=== PATIENT | female | born 1970 | race Two or more races ===

== ENCOUNTER 2017-10-08 21:56 | Emergency (ER) | payer OTHER ==
[2017-10-08] MEDS ORDERED: IBUPROFEN 800 MG TABLET PO ONE (23:08)
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
[2017-10-09] MEDS ORDERED: CYCLOBENZAPRINE HCL 10 MG TABLET PO ONE (00:18)
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
[2017-10-09 01:05] VITALS: BP 150/78
--- NOTE | 2017-10-09 07:17 | EKG REPORT ---
SEVERITY:- NORMAL ECG - SINUS RHYTHM : Confirmed by: Verona Cabral MD 09-Oct-2017 07:16:37
== END 2017-10-09 01:06 | disposition home or self-care (01) ==
LOC: ER 21:56
DX: R07.2 Precordial pain (principal); R07.81 Pleurodynia; V87.7XXA Person injured in collision between other specified motor vehicles (traffic), initial encounter; F17.210 Nicotine dependence, cigarettes, uncomplicated
CPT/HCPCS: 71046; 71120; 93005; 93010; 99285; 99406

== ENCOUNTER 2018-08-25 12:47 | Emergency (ER) | payer SELFPAY ==
[2018-08-25 13:00] VITALS: BP 191/71
== END 2018-08-25 13:44 | disposition left against medical advice (07) ==
LOC: ER 12:47
DX: Z53.21 Procedure and treatment not carried out due to patient leaving prior to being seen by health care provider (principal)

== ENCOUNTER 2018-09-02 14:55 | Emergency (ER) | payer SELFPAY ==
[2018-09-02] MEDS ORDERED: ACETAMINOPHEN 325 MG TABLET PO ONE (15:49)
[2018-09-02] MEDS ORDERED: LIDOCAINE 5% (700 MG) TRANSDERMAL ADH..PATCH TP ONE (15:50)
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
[2018-09-02 16:27] LABS: APPEARANCE,URINE CLOUDY; BILIRUBIN,URINE NEGATIVE (NEGATIVE); COLOR,URINE YELLOW; GLUCOSE, URINE NEGATIVE (NEGATIVE); KETONES,URINE NEGATIVE (NEGATIVE); LEUKOCYTE ESTERASE,URINE TRACE (NEGATIVE); NITRITE,URINE NEGATIVE (NEGATIVE); PROTEIN,URINE NEGATIVE (NEGATIVE); URINE SPECIFIC GRAVITY 1.024; UROBILINOGEN,URINE NEGATIVE mg/dL (<2.0)
[2018-09-02 16:44] VITALS: BP 130/79
== END 2018-09-02 16:43 | disposition home or self-care (01) ==
LOC: ER 14:55
DX: M54.42 Lumbago with sciatica, left side (principal); F17.200 Nicotine dependence, unspecified, uncomplicated
CPT/HCPCS: 81001; 99283

== ENCOUNTER 2018-09-22 14:01 | Emergency (ER) | payer SELFPAY ==
--- NOTE | 2018-09-22 15:05 | ER Document Report ---
ED Medical Screen (RME) - General Chief Complaint: Leg Swelling Stated Complaint: LEG PAIN Time Seen by Provider: 09/22/18 15:03 Mode of Arrival: Wheelchair Information source: Patient Notes: 48-year-old female presented to ED for complaint of bilateral pedal edema with redness for the last 2 weeks. She states the redness is increasing. She states the legs and feet are getting larger. She states yesterday when she was driving she had some numbness to her right foot and leg. She states she does have back problems and sometimes she does have sciatica. She is alert oriented respirations regular and unlabored speaking in full sentences. She does have a history of high blood pressure and was supposed to be taking lisinopril with hydrochlorothiazide but has not been on that for a while. Patient is alert oriented respirations are. Patient states she does smoke a pack a day but does not drink alcohol or use any kind of drugs. 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 I have greeted and performed a rapid initial assessment of this patient. A comprehensive ED assessment and evaluation of the patient, analysis of test results and completion of medical decision making process will be conducted by an additional ED providers. Dictation of this chart was performed using voice recognition software; therefore, there may be some unintended grammatical errors. TRAVEL OUTSIDE OF THE [place] IN LAST 30 DAYS: No - Related Data Allergies/Adverse Reactions: No Known Allergies Allergy (Verified 09/22/18 14:05) Past Medical History Renal/ Medical History: Denies: Hx Peritoneal Dialysis Musculoskeltal Medical History: Reports Hx Arthritis, Reports Hx Musculoskeletal Deformity, Reports Hx Musculoskeletal Trauma Traumatic Medical History: Reports: Hx Fractures - Left leg Past Surgical History: Reports: Hx Dilation and Curettage - d&c-2008, Hx Gynecologic Surgery - Immunizations Hx Diphtheria, Pertussis, Tetanus Vaccination: Yes Physical Exam - Vital signs Vitals: Temp Pulse Resp BP Pulse Ox 98.6 F 94 18 158/88 H 94 09/22/18 14:08 09/22/18 14:08 09/22/18 14:08 09/22/18 14:08 09/22/18 14:08 Course - Vital Signs Vital signs: Temp Pulse Resp BP Pulse Ox 98.6 F 94 18 158/88 H 94 09/22/18 14:08 09/22/18 14:08 09/22/18 14:08 09/22/18 14:08 09/22/18 14:08
--- NOTE | 2018-09-22 15:34 | RADIOLOGY REPORT (SQ) ---
EXAM DESCRIPTION: CHEST 2 VIEWS COMPLETED DATE/TIME: 09/22/2018 3:23 pm REASON FOR STUDY: pedal edema COMPARISON: Two-view chest 10/08/2017 EXAM PARAMETERS: NUMBER OF VIEWS: two views TECHNIQUE: Digital Frontal and Lateral radiographic views of the chest acquired. RADIATION DOSE: NA LIMITATIONS: none FINDINGS: LUNGS AND PLEURA: No opacities, masses or pneumothorax. No pleural effusion. MEDIASTINUM AND HILAR STRUCTURES: No masses or contour abnormalities. HEART AND VASCULAR STRUCTURES: Mild cardiomegaly, stable BONES: No acute findings. HARDWARE: None in the chest. OTHER: No other significant finding. IMPRESSION: NO ACUTE RADIOGRAPHIC FINDING IN THE CHEST. TECHNICAL DOCUMENTATION: JOB ID: [id number] [employer]- All Rights Reserved Reading location - IP/workstation name: [email or web address]
[2018-09-22 15:42] LABS: ABSOLUTE BASOPHILS # (AUTO) 0.1 10^3/uL (0.0-0.2); ABSOLUTE EOSINOPHILS # (AUTO) 0.5 10^3/uL (0.0-0.6); ABSOLUTE LYMPHOCYTES (AUTO) 1.5 10^3/uL (0.5-4.7); ABSOLUTE MONOCYTES (AUTO) 0.8 10^3/uL (0.1-1.4); ABSOLUTE NEUT (AUTO) 6.3 10^3/uL (1.7-8.2); BASOPHILS % (AUTO) 0.6 % (0-2); EOSINOPHILS % (AUTO) 5.7 % (0-6); HEMATOCRIT 37.9 % (36.0-47.0); HEMOGLOBIN 12.3 g/dL (12.0-15.5); LYMPHOCYTES % (AUTO) 15.9 % (13-45); MEAN CORPUSCULAR HEMOGLOBIN 25.9 pg (27.0-33.4); MEAN CORPUSCULAR HGB CONC 32.4 g/dL (32.0-36.0); MEAN CORPUSCULAR VOLUME 80 fl (80-97); MONOCYTES % (AUTO) 8.9 % (3-13); PLATELET COUNT 409 10^3/uL (150-450); RED BLOOD COUNT 4.73 10^6/uL (3.72-5.28); RED CELL DISTRIBUTION WIDTH 16.2 % (11.5-14.0); SEGMENTED NEUTROPHILS % (AUTO) 68.9 % (42-78); TOTAL CELLS COUNTED % (AUTO) 100 %; WHITE BLOOD COUNT 9.2 10^3/uL (4.0-10.5)
[2018-09-22 15:56] LABS: APPEARANCE,URINE CLEAR; BILIRUBIN,URINE NEGATIVE (NEGATIVE); COLOR,URINE YELLOW; GLUCOSE, URINE NEGATIVE (NEGATIVE); KETONES,URINE NEGATIVE (NEGATIVE); LEUKOCYTE ESTERASE,URINE NEGATIVE (NEGATIVE); NITRITE,URINE NEGATIVE (NEGATIVE); PROTEIN,URINE NEGATIVE (NEGATIVE); URINE SPECIFIC GRAVITY 1.016; UROBILINOGEN,URINE NEGATIVE mg/dL (<2.0)
[2018-09-22 15:57] LABS: ALANINE AMINOTRANSFERASE 29 U/L (9-52); ALBUMIN 4.2 g/dL (3.5-5.0); ALKALINE PHOSPHATASE 87 U/L (38-126); ANION GAP 10 (5-19); ASPARTATE AMINO TRANSFERASE 22 U/L (14-36); BILIRUBIN,DIRECT 0.2 mg/dL (0.0-0.4); BILIRUBIN,TOTAL 0.4 mg/dL (0.2-1.3); BLOOD UREA NITROGEN 7 mg/dL (7-20); CALCIUM 9.5 mg/dL (8.4-10.2); CARBON DIOXIDE 27 mmol/L (22-30); CHLORIDE 101 mmol/L (98-107); GLUCOSE 91 mg/dL (75-110); SODIUM 138.4 mmol/L (137-145); TOTAL PROTEIN 7.6 g/dL (6.3-8.2)
[2018-09-22] MEDS ORDERED: CEPHALEXIN 500 MG CAPSULE PO ONE (19:00)
--- NOTE | 2018-09-22 19:10 | ER Document Report ---
ED General - General Chief Complaint: Leg Swelling Stated Complaint: LEG PAIN Time Seen by Provider: 09/22/18 15:03 Mode of Arrival: Wheelchair TRAVEL OUTSIDE OF THE U.S. IN LAST 30 DAYS: No - HPI Notes: Patient is a 48-year-old female who presents to the emergency department for evaluation of bilateral leg edema and redness. She states her leg swelling is been present for about a month. She used to be on Lasix when she lived in [place]. Since moving here she has not established with a primary care physician. 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 The redness developed over the last 3 to 4 days. She denies any fevers or chills, no nausea or vomiting. She states that a few days ago she had an episode of numbness over the lateral aspect of her right leg and into her foot. This was associated with some lower back pain. She has a history of sciatica. She denies any bowel or bladder incontinence, no saddle anesthesia, no focal numbness or weakness. She denies any chest pain or difficulty breathing. No family history of blood clot. She is had no recent prolonged immobilization, surgeries. No history of cancer. No hormone replacement therapy or oral contraceptives. - Related Data Allergies/Adverse Reactions: No Known Allergies Allergy (Verified 09/22/18 14:05) Past Medical History - General Information source: Patient - Social History Smoking Status: Current Every Day Smoker Chew tobacco use (# tins/day): No Frequency of alcohol use: None Drug Abuse: None Family History: Other - Congestive heart failure Patient has suicidal ideation: No Patient has homicidal ideation: No - Past Medical History Cardiac Medical History: Reports: Hx Hypertension Renal/ Medical History: Denies: Hx Peritoneal Dialysis Musculoskeletal Medical History: Reports Hx Arthritis, Reports Hx Musculoskeletal Deformity, Reports Hx Musculoskeletal Trauma Traumatic Medical History: Reports: Hx Fractures - Left leg Past Surgical History: Reports: Hx Dilation and Curettage - d&c-2008, Hx Gynecologic Surgery, Hx Orthopedic Surgery - right wrist carpel tunnel - Immunizations Hx Diphtheria, Pertussis, Tetanus Vaccination: Yes Review of Systems - Review of Systems Constitutional: No symptoms reported EENT: No symptoms reported Cardiovascular: See HPI Respiratory: No symptoms reported Gastrointestinal: No symptoms reported Genitourinary: No symptoms reported Musculoskeletal: See HPI Skin: No symptoms reported Neurological/Psychological: No symptoms reported Physical Exam - Vital signs Vitals: Temp Pulse Resp BP Pulse Ox 98.6 F 94 18 158/88 H 94 09/22/18 14:08 09/22/18 14:08 09/22/18 14:08 09/22/18 14:08 09/22/18 14:08 - Notes Notes: This is an obese 48-year-old female who appears her stated age in no acute distress. Vital signs reviewed, please refer to chart. Head is normocephalic, atraumatic. Pupils equal round, reactive to light. Neck is supple without meningismus. Heart is regular rate and rhythm. Lungs are clear to auscultation bilaterally. Abdomen is soft, nontender, normoactive bowel sounds throughout. Extremities without cyanosis, clubbing. Patient does have 2+ edema to the mid tibia. She has diffuse erythema to bilateral lower extremities. It is at a level correlating with the edema. She has 2+ dorsalis pedis pulses bilaterally. Posterior calves are nontender. Peripheral pulses are equal. Skin is warm and dry. Patient is awake, alert, neurological exam is nonfocal. Course - Re-evaluation Re-evalutation: 09/22/18 19:08 Patient presents emergency department for evaluation. She has bilateral lower extremity edema. She has no DVT risk factors. Her edema is symmetrical. She has no posterior calf tenderness. She had work-up as ordered through triage. At this time, she has no other significant abnormalities on evaluation. I believe that the mild numbness that she had yesterday was secondary to her sciatica. The patient was counseled on weight loss, keeping legs elevated, staying hydrated. I will go ahead and cover her for a mild cellulitis, but I do suspect this is more likely secondary to the edema and chronic changes associated with it. Patient is given compression stockings here. We will send her home with Keflex and [facility]. She is to return to the ED with worsening or new concerning symptoms of any sort. - Vital Signs Vital signs: Temp Pulse Resp BP Pulse Ox 98.6 F 94 18 158/88 H 94 09/22/18 14:08 09/22/18 14:08 09/22/18 14:08 09/22/18 14:08 09/22/18 14:08 - Laboratory Result Diagrams: 09/22/18 15:28 09/22/18 15:28 Laboratory results interpreted by me: 09/22/18 09/22/18 15:28 15:28 MCH 25.9 L RDW 16.2 H Creatinine 0.50 L - Diagnostic Test Radiology reviewed: Reports reviewed Radiology results interpreted by me: 09/22/18 19:08 Chest X-Ray 09/22/18 15:06 IMPRESSION: NO ACUTE RADIOGRAPHIC FINDING IN THE CHEST. Discharge - Discharge Clinical Impression: Bilateral lower extremity edema Condition: Stable Disposition: HOME, SELF-CARE Instructions: Dependent Edema ([facility]) Additional Instructions: Take Keflex as prescribed. Keep legs elevated, wear compression stockings as directed. Try to increase your water intake, decrease her sodium intake. [facility]. Return to the ED with worsening or new concerning symptoms of any sort. Forms: Elevated Blood Pressure Referrals: [facility] [NO LOCAL MD] - Follow up as needed
[2018-09-22 19:30] VITALS: BP 140/80
== END 2018-09-22 19:20 | disposition home or self-care (01) ==
LOC: ER 14:01
DX: R60.0 Localized edema (principal); L53.9 Erythematous condition, unspecified; R20.0 Anesthesia of skin; M54.5 Low back pain; F17.200 Nicotine dependence, unspecified, uncomplicated; I10 Essential (primary) hypertension
CPT/HCPCS: 36415; 71046; 80053; 81001; 83880; 85025; 99283

== ENCOUNTER 2018-10-11 16:36 | Emergency (ER) | payer SELFPAY ==
[2018-10-11 17:04] VITALS: BP 154/85
--- NOTE | 2018-10-11 18:27 | ER Document Report ---
ED Medical Screen (RME) - General Chief Complaint: Leg Pain Stated Complaint: LEG WOUND Time Seen by Provider: 10/11/18 18:09 Mode of Arrival: Ambulatory Information source: Patient Notes: Patient presents to the emergency department with complaints bilateral leg swelling. Patient reports she is been here 3 times in the past few months for the same complaint. She does not have a primary care provider. Reports she is been given Keflex and Lasix and no. She denies fever vomiting diarrhea. Patient reports she is not a diabetic but has history of high blood pressure. I have greeted and performed a rapid initial assessment of this patient. A comprehensive ED assessment and evaluation of the patient, analysis of test results and completion of the medical decision making process will be conducted by additional ED providers. Dictation of this chart was performed using voice recognition software; therefore, there may be some unintended grammatical errors. TRAVEL OUTSIDE OF THE U.S. IN LAST 30 DAYS: No - Related Data Allergies/Adverse Reactions: No Known Allergies Allergy (Verified 10/11/18 16:36) Past Medical History - Past Medical History Cardiac Medical History: Reports: Hx Hypertension Renal/ Medical History: Denies: Hx Peritoneal Dialysis Musculoskeltal Medical History: Reports Hx Arthritis, Reports Hx Musculoskeletal Deformity, Reports Hx Musculoskeletal Trauma Traumatic Medical History: Reports: Hx Fractures - Left leg Past Surgical History: Reports: Hx Dilation and Curettage - d&c-2008, Hx Gynecologic Surgery, Hx Orthopedic Surgery - right wrist carpel tunnel - Immunizations Hx Diphtheria, Pertussis, Tetanus Vaccination: Yes Physical Exam - Vital signs Vitals: Temp Pulse Resp BP Pulse Ox 98.2 F 84 18 154/85 H 97 10/11/18 16:57 10/11/18 16:57 10/11/18 16:57 10/11/18 16:57 10/11/18 16:57 Course - Vital Signs Vital signs: Temp Pulse Resp BP Pulse Ox 98.2 F 84 18 154/85 H 97 10/11/18 16:57 10/11/18 16:57 10/11/18 16:57 10/11/18 16:57 10/11/18 16:57
[2018-10-11 19:15] LABS: ABSOLUTE BASOPHILS # (AUTO) 0.1 10^3/uL (0.0-0.2); ABSOLUTE EOSINOPHILS # (AUTO) 0.5 10^3/uL (0.0-0.6); ABSOLUTE LYMPHOCYTES (AUTO) 1.5 10^3/uL (0.5-4.7); ABSOLUTE MONOCYTES (AUTO) 0.6 10^3/uL (0.1-1.4); ABSOLUTE NEUT (AUTO) 5.3 10^3/uL (1.7-8.2); BASOPHILS % (AUTO) 0.7 % (0-2); EOSINOPHILS % (AUTO) 6.4 % (0-6); HEMATOCRIT 37.4 % (36.0-47.0); HEMOGLOBIN 12.1 g/dL (12.0-15.5); LYMPHOCYTES % (AUTO) 19.3 % (13-45); MEAN CORPUSCULAR HEMOGLOBIN 25.5 pg (27.0-33.4); MEAN CORPUSCULAR HGB CONC 32.3 g/dL (32.0-36.0); MEAN CORPUSCULAR VOLUME 79 fl (80-97); MONOCYTES % (AUTO) 7.7 % (3-13); PLATELET COUNT 444 10^3/uL (150-450); RED BLOOD COUNT 4.74 10^6/uL (3.72-5.28); RED CELL DISTRIBUTION WIDTH 16.1 % (11.5-14.0); SEGMENTED NEUTROPHILS % (AUTO) 65.9 % (42-78); TOTAL CELLS COUNTED % (AUTO) 100 %
[2018-10-11 19:30] LABS: ALANINE AMINOTRANSFERASE 23 U/L (9-52); ALBUMIN 4.3 g/dL (3.5-5.0); ALKALINE PHOSPHATASE 88 U/L (38-126); ANION GAP 12 (5-19); ASPARTATE AMINO TRANSFERASE 24 U/L (14-36); BILIRUBIN,DIRECT 0.3 mg/dL (0.0-0.4); BILIRUBIN,TOTAL 0.3 mg/dL (0.2-1.3); BLOOD UREA NITROGEN 9 mg/dL (7-20); CALCIUM 9.8 mg/dL (8.4-10.2); CARBON DIOXIDE 28 mmol/L (22-30); CHLORIDE 101 mmol/L (98-107); GLUCOSE 96 mg/dL (75-110); POTASSIUM 4.3 mmol/L (3.6-5.0); SODIUM 140.8 mmol/L (137-145); TOTAL PROTEIN 7.7 g/dL (6.3-8.2)
[2018-10-11 19:40] LABS: APPEARANCE,URINE SLIGHTLY-CLOUDY; BILIRUBIN,URINE NEGATIVE (NEGATIVE); GLUCOSE, URINE NEGATIVE (NEGATIVE); KETONES,URINE NEGATIVE (NEGATIVE); LEUKOCYTE ESTERASE,URINE NEGATIVE (NEGATIVE); NITRITE,URINE NEGATIVE (NEGATIVE); PROTEIN,URINE 30 mg/dL (NEGATIVE); URINE SPECIFIC GRAVITY 1.025; UROBILINOGEN,URINE NEGATIVE mg/dL (<2.0)
[2018-10-11 19:43] LABS: COLOR,URINE YELLOW
== END 2018-10-11 20:40 | disposition left against medical advice (07) ==
LOC: ER 16:36
DX: M79.89 Other specified soft tissue disorders (principal); I10 Essential (primary) hypertension; Z53.20 Procedure and treatment not carried out because of patient's decision for unspecified reasons
CPT/HCPCS: 36415; 80053; 81001; 83880; 85025; 99281

== ENCOUNTER 2018-10-14 17:00 | Emergency (ER) | payer SELFPAY ==
--- NOTE | 2018-10-14 21:40 | ER Document Report ---
ED Medical Screen (RME) - General Chief Complaint: Leg Swelling Stated Complaint: LEG SWELLING Time Seen by Provider: 10/14/18 21:37 Mode of Arrival: Ambulatory Information source: Patient Notes: Patient presents complaining of bilateral lower extremity swelling and pain. Patient reports exertional shortness of breath. Patient denies any chest pain nausea or vomiting. Patient states she has a history of hypertension and CHF but does not take any medicines that she does not have insurance. I have greeted and performed a rapid initial assessment of this patient. A comprehensive ED assessment and evaluation of the patient, analysis of test results and completion of the medical decision making process will be conducted by additional ED providers. TRAVEL OUTSIDE OF THE U.S. IN LAST 30 DAYS: No - Related Data Allergies/Adverse Reactions: No Known Allergies Allergy (Verified 10/14/18 17:03) Past Medical History - Past Medical History Cardiac Medical History: Reports: Hx Congestive Heart Failure, Hx Hypertension Renal/ Medical History: Denies: Hx Peritoneal Dialysis Musculoskeltal Medical History: Reports Hx Arthritis, Reports Hx Musculoskeletal Deformity, Reports Hx Musculoskeletal Trauma Traumatic Medical History: Reports: Hx Fractures - Left leg Past Surgical History: Reports: Hx Dilation and Curettage - d&c-2008, Hx Gynecologic Surgery, Hx Orthopedic Surgery - right wrist carpel tunnel - Immunizations Hx Diphtheria, Pertussis, Tetanus Vaccination: Yes Physical Exam - Vital signs Vitals: Temp Pulse Resp BP Pulse Ox 98.2 F 95 18 178/92 H 97 10/14/18 17:06 10/14/18 17:06 10/14/18 17:06 10/14/18 17:06 10/14/18 17:06 - General Notes: Bilateral lower extremity 2-3+ edema, skin warm to touch and erythematous - Respiratory Chest status: Nontender Course - Vital Signs Vital signs: Temp Pulse Resp BP Pulse Ox 98.2 F 95 18 178/92 H 97 10/14/18 17:06 10/14/18 17:06 10/14/18 17:06 10/14/18 17:06 10/14/18 17:06
--- NOTE | 2018-10-14 22:46 | RADIOLOGY REPORT (SQ) ---
EXAM DESCRIPTION: XR CHEST 2 VIEWS COMPLETED DATE/TME: 10/14/2018 21:38 CLINICAL HISTORY: 48 years, Female, sob COMPARISON: 09/22/2018. NUMBER OF VIEWS: Two TECHNIQUE: Two-view, PA and lateral projections of the chest were obtained. LIMITATIONS: None. FINDINGS: Stable prominent cardiac and mediastinal silhouette. Heart size is mildly enlarged. Lungs are clear without focal opacity, pneumothorax or pleural effusions. The visualized bones reveal degenerative change. IMPRESSION: No acute cardiopulmonary abnormalities. copyright 2010 [employer]- All Rights Reserved
[2018-10-15] MEDS ORDERED: FUROSEMIDE INJ/PF 40 MG/4 ML SDV IV ONE (00:31)
--- NOTE | 2018-10-15 00:32 | ER Document Report ---
ED General - General Chief Complaint: Leg Swelling Stated Complaint: LEG SWELLING Time Seen by Provider: 10/14/18 21:37 Mode of Arrival: Ambulatory Notes: Patient is a 48-year-old female presents with complaints of leg swelling. She has chronic leg swelling which she says she has a history of CHF but does not take medications other than occasional Lasix as her mom's. She has been told past that she should wear the compression stockings. Said one time she was given compression stockings but they did not fit and therefore she did not wear them. She denies any chest pain. She said some mild shortness of breath. No fevers. She is been told before that she has cellulitis in her legs but has taken Keflex in the past as well. She denies any recent fevers or infections. No other complaints at this time. She does not follow with a primary care physician. TRAVEL OUTSIDE OF THE U.S. IN LAST 30 DAYS: No - Related Data Allergies/Adverse Reactions: No Known Allergies Allergy (Verified 10/14/18 17:03) Past Medical History - General Information source: Patient - Social History Smoking Status: Never Smoker Frequency of alcohol use: None Drug Abuse: None Family History: Other - Congestive heart failure - Past Medical History Cardiac Medical History: Reports: Hx Congestive Heart Failure, Hx Hypertension Renal/ Medical History: Denies: Hx Peritoneal Dialysis Musculoskeletal Medical History: Reports Hx Arthritis, Reports Hx Musculoskeletal Deformity, Reports Hx Musculoskeletal Trauma Traumatic Medical History: Reports: Hx Fractures - Left leg Past Surgical History: Reports: Hx Dilation and Curettage - d&c-2008, Hx Gynecologic Surgery, Hx Orthopedic Surgery - right wrist carpel tunnel - Immunizations Hx Diphtheria, Pertussis, Tetanus Vaccination: Yes Review of Systems - Review of Systems Notes: My Normal Review Basic REVIEW OF SYSTEMS: CONSTITUTIONAL : Denies fever, chills, or sweats. Denies recent illness. CARDIOVASCULAR: Denies chest pain. RESPIRATORY: Denies cough, cold, or chest congestion. Intermittent mild shortness of breath. GASTROINTESTINAL: Denies abdominal pain. Denies nausea, vomiting, or diarrhea. Denies constipation. Last BM: GENITOURINARY: Denies difficulty urinating, painful urination, burning, frequency, or blood in urine. MUSCULOSKELETAL: Bilateral lower extremity edema SKIN: Denies rash or skin lesions. NEUROLOGICAL: Denies altered mental status or loss of consciousness. Denies headache. Denies weakness or paralysis or loss of use of either side. Denies problems with gait or speech. Denies sensory or motor loss. ALL OTHER SYSTEMS REVIEWED AND NEGATIVE. Physical Exam - Vital signs Vitals: Temp Pulse Resp BP Pulse Ox 98.2 F 95 18 178/92 H 97 10/14/18 17:06 10/14/18 17:06 10/14/18 17:06 10/14/18 17:06 10/14/18 17:06 - Notes Notes: General Appearance: Well nourished, alert, cooperative, no acute distress, no ob vious discomfort. Vitals: reviewed, See vital signs table. Eyes: PERRL, EOMI, Conjuctiva clear Mouth: No decreasd moisture Lungs: No wheezing, No rales, No rhonci, No accessory muscle use, good air ex change bilaterally. Heart: Normal rate, Regular rythm, No murmur, no rub Abdomen: Normal BS, soft, No rigidity, No abdominal tenderness, No guarding, no rebound, no abdominal masses, no organomegaly Extremities: strength 5/5 in all extremities, good pulses in all extremities, patient has bilateral equal edema bilateral lower extremities. She does have chronic darkening of the skin of the legs due to chronic edema. Legs are not abnormally warm to touch or palpation. Skin: warm, dry, appropriate color, no rash Neuro: speech clear, oriented x 3, normal affect, responds appropriately to questions. Course - Re-evaluation Re-evalutation: 10/15/18 02:50 Patient is feeling improved. She has been urinating frequently since receiving Lasix. She does have chronic edema in her lower extremities. She is somewhat noncompliant as she does not see a doctor. She takes occasionally her mother's Lasix but she does not really know the dose. She says is either 5 or 10 mg but she is not sure. Informed her that she needs to be in his 20 mg of Lasix. Also provides little potassium as this would like a lower potassium a little bit. Informed her that she needs to follow-up closely with primary care doctor for reevaluation. If she cannot follow-up with primary care doctor then she can return to ER in 5 days and will happy to reevaluate her. She does have some redness to her legs bilaterally but this looks more consistent to me with chronic edema however the patient says they are more red than usual. She is concerned she could have an infection even though she has no leukocytosis or fever. She says in the past her doctors have always place her on Lasix. She is very concerned about this and adamant I think is partly because her mother is about to undergo amputation related to infection. I told her we will start her on a short course of Keflex. I informed her that would have her reevaluated in 5 days to determine whether or not she needs any further antibiotic medications. I encouraged her return to ER if she has spreading redness or swelling, difficulty breathing, fevers, or feels unwell. Patient agrees with plan will be discharged home. Dictation of this chart was performed using voice recognition software; therefore, there may be some unintended grammatical errors. - Vital Signs Vital signs: Temp Pulse Resp BP Pulse Ox 98.2 F 95 18 178/92 H 97 10/14/18 17:06 10/14/18 17:06 10/14/18 17:06 10/14/18 17:06 10/14/18 17:06 - Laboratory Result Diagrams: 10/15/18 01:20 10/15/18 01:20 Laboratory results interpreted by me: 10/15/18 10/15/18 00:10 01:20 Hgb 11.4 L Hct 35.7 L MCV 79 L MCH 25.4 L RDW 16.4 H Urine Protein 30 H Urine Blood LARGE H Urine Urobilinogen 2.0 H Ur Leukocyte Esterase TRACE H - EKG Interpretation by Me Additional EKG results interpreted by me: 10/15/18 02:48 EKG is reviewed and interpreted by me. EKG shows sinus rhythm with rate of [address] segment elevation or depression. No ischemic T wave inversions. WI interval, QRS duration, QT intervals are within normal range. No old EKG available for comparison. Discharge - Discharge Clinical Impression: Leg edema Condition: Good Disposition: HOME, SELF-CARE Additional Instructions: Please take the medications as prescribed. Please return to the ER immediately if you have spreading redness in your legs, increasing edema, difficulty breathing, chest pain, or if you feel like you are worsening in any way. Please call the [facility] to make an appointment to establish yourself with them. I want you to see a doctor in 5 days for reevaluation. Please return to the ER if you do not have a doctor that you can get into in the next 5 days and we will be happy reevaluate your legs to make sure that they are improving. It is very important that when you are in bed or sitting that you keep your legs elevated. When you are sleeping at night please elevate your feet or legs on pillows. Please go to any pharmacy or medical supply store and get compression stockings. The Lasix will be much more effective if you wear compression stockings. Prescriptions: Cephalexin Monohydrate [Keflex 500 mg Capsule] 500 mg PO BID #10 capsule Furosemide [Lasix 20 mg Tablet] 20 mg PO QAM #30 tablet Potassium Chloride 10 meq PO DAILY #14 capsule.er Forms: Return to Work
[2018-10-15 00:54] LABS: APPEARANCE,URINE CLOUDY; BILIRUBIN,URINE NEGATIVE (NEGATIVE); COLOR,URINE AMBER; GLUCOSE, URINE NEGATIVE (NEGATIVE); KETONES,URINE NEGATIVE (NEGATIVE); LEUKOCYTE ESTERASE,URINE TRACE (NEGATIVE); NITRITE,URINE NEGATIVE (NEGATIVE); PROTEIN,URINE 30 mg/dL (NEGATIVE); URINE SPECIFIC GRAVITY 1.028
[2018-10-15 01:32] LABS: ABSOLUTE BASOPHILS # (AUTO) 0.1 10^3/uL (0.0-0.2); ABSOLUTE EOSINOPHILS # (AUTO) 0.5 10^3/uL (0.0-0.6); ABSOLUTE LYMPHOCYTES (AUTO) 1.4 10^3/uL (0.5-4.7); ABSOLUTE MONOCYTES (AUTO) 0.6 10^3/uL (0.1-1.4); ABSOLUTE NEUT (AUTO) 5.6 10^3/uL (1.7-8.2); BASOPHILS % (AUTO) 1.2 % (0-2); EOSINOPHILS % (AUTO) 5.6 % (0-6); HEMATOCRIT 35.7 % (36.0-47.0); HEMOGLOBIN 11.4 g/dL (12.0-15.5); LYMPHOCYTES % (AUTO) 17.3 % (13-45); MEAN CORPUSCULAR HEMOGLOBIN 25.4 pg (27.0-33.4); MEAN CORPUSCULAR HGB CONC 32.1 g/dL (32.0-36.0); MEAN CORPUSCULAR VOLUME 79 fl (80-97); MONOCYTES % (AUTO) 7.8 % (3-13); PLATELET COUNT 407 10^3/uL (150-450); RED CELL DISTRIBUTION WIDTH 16.4 % (11.5-14.0); SEGMENTED NEUTROPHILS % (AUTO) 68.1 % (42-78); TOTAL CELLS COUNTED % (AUTO) 100 %; WHITE BLOOD COUNT 8.2 10^3/uL (4.0-10.5)
[2018-10-15 01:52] LABS: ALANINE AMINOTRANSFERASE 22 U/L (9-52); ALBUMIN 4.1 g/dL (3.5-5.0); ALKALINE PHOSPHATASE 91 U/L (38-126); ANION GAP 8 (5-19); ASPARTATE AMINO TRANSFERASE 21 U/L (14-36); BILIRUBIN,DIRECT 0.2 mg/dL (0.0-0.4); BILIRUBIN,TOTAL 0.4 mg/dL (0.2-1.3); BLOOD UREA NITROGEN 11 mg/dL (7-20); CALCIUM 9.6 mg/dL (8.4-10.2); CARBON DIOXIDE 29 mmol/L (22-30); CHLORIDE 105 mmol/L (98-107); GLUCOSE 101 mg/dL (75-110); TOTAL PROTEIN 7.3 g/dL (6.3-8.2)
[2018-10-15 02:04] LABS: NT PRO BNP 80 pg/mL (<125)
[2018-10-15 02:12] LABS: TROPONIN I < 0.012 ng/mL
[2018-10-15 03:22] VITALS: BP 156/99
--- NOTE | 2018-10-15 10:06 | EKG REPORT ---
SEVERITY:- NORMAL ECG - SINUS RHYTHM : Confirmed by: Joaquin Charles MD 15-Oct-2018 10:06:09
== END 2018-10-15 03:00 | disposition home or self-care (01) ==
LOC: ER 17:00
DX: R60.0 Localized edema (principal); L53.9 Erythematous condition, unspecified; I10 Essential (primary) hypertension; Z86.79 Personal history of other diseases of the circulatory system
CPT/HCPCS: 93005; 99284; 96374; 36415; 84703; 85025; 80053; 81001; 84484; 83880; 71046; 93010; J1940

== ENCOUNTER 2018-10-23 05:49 | Emergency (ER) | payer SELFPAY ==
[2018-10-23 05:55] VITALS: BP 152/95
--- NOTE | 2018-10-23 07:26 | ER Document Report ---
ED Extremity Problem, Lower - General Chief Complaint: Leg Swelling Stated Complaint: SWOLLEN LEGS, NUMBNESS Time Seen by Provider: 10/23/18 07:07 TRAVEL OUTSIDE OF THE [place] IN LAST 30 DAYS: No - HPI Notes: Patient is a 48-year-old female who presents to the emergency department for evaluation of lower extremity edema and pain. She states that occasionally they feel numb and burning. This is not a new problem for her. This is been ongoing for some time. She is been seen here in the past for it. She states the compression stockings given to her do not fit. She states she did not have any improvement on the Keflex. She states she is "too busy" taking care of her mother to go to the doctors. She denies any fevers or chills. No nausea or vomiting. She states her pain is a burning numbness, states it is currently an 8 out of 10. She states she just cannot take it anymore. She denies any difficulty breathing. She has been taking the Keflex, as well as the Lasix prescribed to her at her last visit. She states she can tell she is dehydrated because her food tastes differently. - Related Data Allergies/Adverse Reactions: No Known Allergies Allergy (Verified 10/14/18 17:03) Past Medical History - General Information source: Patient - Social History Smoking Status: Current Every Day Smoker Drug Abuse: None Family History: DM, Other - Congestive heart failure Patient has suicidal ideation: No Patient has homicidal ideation: No - Past Medical History Cardiac Medical History: Reports: Hx Congestive Heart Failure, Hx Hypertension Renal/ Medical History: Denies: Hx Peritoneal Dialysis Musculoskeletal Medical History: Reports Hx Arthritis, Reports Hx Musculoskeletal Deformity, Reports Hx Musculoskeletal Trauma Traumatic Medical History: Reports: Hx Fractures - Left leg Past Surgical History: Reports: Hx Dilation and Curettage - d&c-2008, Hx Gynecologic Surgery, Hx Orthopedic Surgery - right wrist carpel tunnel - Immunizations Hx Diphtheria, Pertussis, Tetanus Vaccination: Yes Review of Systems - Review of Systems Constitutional: No symptoms reported EENT: No symptoms reported Cardiovascular: See HPI Respiratory: No symptoms reported Gastrointestinal: No symptoms reported Genitourinary: No symptoms reported Musculoskeletal: See HPI Skin: See HPI Neurological/Psychological: No symptoms reported Physical Exam - Vital signs Vitals: Temp Pulse Resp BP Pulse Ox 98.2 F 104 H 24 H 152/95 H 97 10/23/18 05:50 10/23/18 05:50 10/23/18 05:50 10/23/18 05:50 10/23/18 05:50 - Notes Notes: Vital signs reviewed, please refer to chart. Head is normocephalic, atraumatic. Pupils equal round, reactive to light. Neck is supple without meningismus. Heart is regular rate and rhythm. Lungs are clear to auscultation bilaterally. Abdomen is soft, nontender, normoactive bowel sounds throughout. Extremities without cyanosis, clubbing. Posterior calves are nontender. She has 3+ pitting edema to the mid kapadia. She has chronic appearing erythema and skin thickening noted to bilateral lower extremities, corresponding to the areas of edema. Peripheral pulses are equal. Skin is warm and dry. Patient is awake, alert, neurological exam is nonfocal. Course - Re-evaluation Re-evalutation: 10/23/18 07:25 Patient presents emergency department for evaluation. She is told she stevenu fang needs to quit smoking. 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 This would be the ideal time, seeing as she needs to take care of herself in order to be able to take care of her mother. At this point I will go ahead and check a basic metabolic panel as the patient is concerned she is dehydrated. Hep-Lock will be in place in case there are any significant electrolyte abnormalities or need for IV fluids. Patient has no risk factors for DVT. She has had a negative work-up for CHF. Her lungs are clear. I do not see any reason for further investigation at this time. We will continue to monitor. 10/23/18 07:26 10/23/18 08:49 I was notified by nursing that the patient was not present in the room. She had been in the bathroom earlier. I also know that the patient's mother is inpatient upstairs. We held the room for nearly an hour. The patient did not return. Evidently she eloped from the department. - Vital Signs Vital signs: Temp Pulse Resp BP Pulse Ox 98.2 F 104 H 24 H 152/95 H 97 10/23/18 05:50 10/23/18 05:50 10/23/18 05:50 10/23/18 05:50 10/23/18 05:50 Discharge - Discharge Clinical Impression: Lower leg edema [facility]
== END 2018-10-23 09:24 | disposition left against medical advice (07) ==
LOC: ER 05:49
DX: R60.9 Edema, unspecified (principal); F17.200 Nicotine dependence, unspecified, uncomplicated; I50.9 Heart failure, unspecified; I11.0 Hypertensive heart disease with heart failure
CPT/HCPCS: 99281